=== PATIENT | male | born 2005 | race Caucasian/White ===

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

== ENCOUNTER 2025-06-22 13:42 | Emergency (ER) | payer OTHER, SELFPAY ==
[2025-06-22 14:36] VITALS: BP 112/63; PULSE 65; RESP 18; TEMP 37; O2SAT 97; BMI 20.6
--- NOTE | 2025-06-22 14:55 | PC.NURSE ---
called [facility] and verified dog is vaccinated for rabies [phone]
--- NOTE | 2025-06-22 14:56 | ED.GENADULT ---
HPI - General Adult General Chief complaint: Animal Bite Stated complaint: dog bite today Time Seen by Provider: 06/22/25 14:54 Source: patient, family (father) and RN notes reviewed Mode of arrival: ambulatory Limitations: no limitations History of Present Illness ED Provider: Ham HPI narrative: 19-year-old male presents for evaluation of a dog bite to his left lower leg The [facility] Another individual had a great [place] Pit Bull terrier that bit the patient in the back of the leg The patient has 1 small puncture wound in an abrasion to the back of the left lower calf. He has no difficulty flexing or extending the foot. No active bleeding The patient is up-to-date on his tetanus vaccine Related Data Previous Rx's ?Medication ?Instructions ?Recorded amoxicillin 875 mg-potassium 1 tab PO Q12H #10 tabs 06/22/25 clavulanate 125 mg tablet Allergies Allergy/AdvReac Type Severity Reaction Status Date / Time No Known Allergies Allergy Verified 06/22/25 14:39 Review of Systems Integumentary/Breasts: Skin/Breast: Reports wounds PMFSH Social History Social History Advance Directives: No Advance Directives Information Provided: Yes Physical Exam ED Vital Signs: Vital Signs - 24 hr 06/22/25 14:36 06/22/25 15:28 Temperature 98.6 F 98.6 F Pulse Rate 65 65 Respiratory Rate 18 18 Blood Pressure 112/63 112/63 Pulse Oximetry 97 97 Oxygen Delivery Method Room Air Room Air BMI result Body Mass Index 20.6 Const General: healthy appearing, comfortable, no acute distress, alert and awake Nutritional Appearance: well nourished Orientation/consciousness: patient oriented x3 HENMT Head: Yes normocephalic and Yes atraumatic Eyes Eyelids: Yes eyelids normal Conjunctivae: conjunctivae normal Sclerae: sclerae normal Corneas: corneas normal Pupils: Equal, round and reactive pupils present EOM: EOMs intact bilaterally Neck Neck: Yes full ROM Resp Effort & Inspection: normal respiratory effort, able to speak in complete sentences and not labored Skin Other: There is a small puncture wound to the left lower leg at the calf and an abrasion lateral to this. No active bleeding General skin exam: elasticity normal Neuro General: patient oriented x3 Cranial nerves: Yes Equal, round and reactive pupils present and Yes Bilaterally intact EOM present Cognition (Neuro): normal cognition Extrem Other: Moving all extremities well without any obvious deformities. Full range of motion with flexion-extension of the left lower leg and dorsiflexion, plantar flexion of foot. Medical Decision Making Medical Decision Making [facility] Narrative: 19-year-old male presents for evaluation of a dog bite. The wounds are superficial and quite minor. He is up-to-date in his tetanus. There was no evidence of deep injury or tendon injury. I did cleaned the wound with Betadine. We are able to confirm with [facility] that the dog in question that bit the patient was vaccinated for rabies. He was given if 3 year vaccine in March of 2023. We will give the patient is short course of Augmentin for prophylaxis Differential Diagnosis Differential Diagnoses: The differential diagnosis associated with the presentation includes Dog bite Puncture wound Laceration Skin tear Discharge Plan Discharge Clinical Impression: Dog bite Patient Disposition: Home, Self-Care Instructions: Animal Bite (ED) Additional Instructions: We are able to confirmed with [facility] that the dog was vaccinated for rabies until March of 2026. I recommend taking Augmentin twice daily for the next 5 days to prevent infection Follow-up with your primary doctor, return for new or worsening symptoms Prescriptions: New amoxicillin-pot clavulanate 875-125 mg tablet 1 tab PO Q12H Qty: 10 0RF Interventions: ED Discharge Assessment Last Done: 06/22/25 15:28 Discharge Date/Time: 06/22/25 15:29 Print Language: Yi
[2025-06-22 15:28] VITALS: BP 112/63; PULSE 65; RESP 18; TEMP 37; O2SAT 97
--- OUTSIDE RECORDS SUMMARY | 2025-06-22 15:57 | XMS_ITS | Clinical Summary ---
Author Organization [address] [address] Phone Care Team Providers Care Retail Shift Supervisor Name Role Phone Stephen Long MD Primary Care Provider [phone] Allergies No known active allergies Medications cetirizine (ZYRTEC) 10 mg tablet Take 10 mg by mouth. Active multivitamin capsule Take 1 capsule by mouth. Active Active Problems No known active problems Family History Medical History Relation Name Comments Diabetes Father Cataracts Maternal Grandfather Diabetes Maternal Grandfather Cataracts Maternal Grandmother Thyroid disease Paternal Grandfather Relation Name Status Comments Father Maternal Grandfather Maternal Grandmother Paternal Grandfather Social History Tobacco Use Types Packs/Day Years Used Date Smoking Tobacco: Never Smokeless Tobacco: Never Alcohol Use Standard Drinks/Week Comments Never 0 (1 standard drink = 0.6 oz pur e alcohol) AUDIT-C Answer Date Recorded Q1: How often do you have a drink containing alc ohol? Never 03/20/2021 Average Number of Drinks Not on file 021 Frequency of Binge Drinking Not on file 03/03 Sex and Gender Information Value Date Recorded Sex Assigned at Not on file Legal Sex Male 9:58 AM EDT Gender Identity Not on file Sexual Orientation Not on file Last Filed Vital Signs Vital Sign Reading Time Taken Comments Blood Pressure 104/56 03/20/2021 9:21 AM EDT Pulse 75 03/20/2021 9:21 AM EDT Temperature - - Respiratory Rate - - Oxygen Saturation - - Inhaled Oxygen Concentration - - Weight 72.6 kg (160 lb) 03/20/2021 9:21 AM EDT Height 182.9 cm (6') 03/20/2021 9:21 AM EDT Body Mass Index 21.7 03/20/2021 9:21 AM EDT Body Mass Index Percentile 68.59% 03/20/2021 9:2 1 AM EDT Growth Chart: [facility] (Boys, 2-2 0 Years) Plan of Treatment Health Maintenance Due Date Last Done Comments MMR Vaccines (1 of 1 - Stand ariane series) 2006 DTaP/TDaP Vaccines (1 - Tdap) 2012 HIV screening 2018 Varicella Vaccines (1 of 2 - 13+ 2-dose series) 2018 HPV vaccine series (1 - Male 3-dose series) 2020 Hepatitis C screening 2023 Covid-19 vaccine series (1 - 2023-25 season) 2024 Hepatitis B vaccine series ( 1 of 3 - 19+ 3-dose series) 2024 Influenza Vaccine Pediatric (#1) 2025 RSV Immunization (1 - 1-dose 75+ series) 2080 HIB Vaccines Aged Out No longer eligi ble based on patient's age to complete this topic Hepatitis A Vaccines Aged Out No long er eligible based on patient's age to complete this topic IPV Vaccines Aged Out No longer eligi ble based on patient's age to complete this topic Meningococcal Vaccine Aged Out No vaishnavi florencia eligible based on patient's age to complete this topic Pneumococcal Vaccine (2 - 49 years) Aged Out No longer eligible based on patient's age to complete this topic Rotavirus Vaccines Aged Out No longer eligible based on patient's age to complete this topic Insurance [employer] on file [id number] [place] [place] [address] on file [id number] MEDICAID [facility] on file [id number] MEDICAID Care Teams Retail Shift Supervisor Relationship Specialty Start Date End Date Stephen Long MD [address] [place] [address] PCP - General Pediatrics 03/20/21
--- OUTSIDE RECORDS SUMMARY | 2025-06-22 15:57 | XMS_ITS ---
[facility] Name [facility] Organization Unknown Care Team Organization Name Specialty Phone Email Start Date End [facility]
--- OUTSIDE RECORDS SUMMARY | 2025-06-22 15:57 | XMS_ITS | Clinical Summary ---
Author Organization [facility] Address [address] [place] [phone] Phone Care Team Providers Care Visual Design Lead Name Role Phone Unknown, Unknown Primary Care Provider Unavai lable Allergies No known active allergies Medications cetirizine (ZYRTEC) 10 MG tablet Take 10 mg by mouth as needed for allergies. Active multivitamins capsule Take 1 capsule by mouth daily. Active cyproheptadine (PERIACTIN) 4 mg tablet cyproheptadine 4 mg tablet PLEASE SEE ATTACHED FOR DETAILED DIRECTIONS 2 Active Active Problems No known active problems Family History Medical History Relation Comments Keratoconus Brother Relation Status Comments Brother Social History Tobacco Use Types Packs/Day Years Used Date Smoking Tobacco: Never Smokeless Tobacco: Never Alcohol Use Standard Drinks/Week Comments Never 0 (1 standard drink = 0.6 oz pur e alcohol) Education Answer Date Recorded Are you interested in more education? Not on jude e 02/28/2023 Are you concerned about learning? Not on file 02/28/2023 No 02/28/2023 No 02/28/2023 Digital Access Answer Date Recorded No 03/29/2023 No 03/29/2023 No 03/29/2023 Reliable internet access at home? Not on file 03/29/2023 Device with a working camera? Not on file Sex and Gender Information Value Date Recorded Sex Assigned at Not on file Legal Sex Male 10:54 AM EDT Gender Identity Not on file Sexual Orientation Not on file Last Filed Vital Signs Vital Sign Reading Time Taken Comments Blood Pressure 112/73 10/03/2020 4:15 PM EST Pulse 62 10/03/2020 4:15 PM EST Temperature - - Respiratory Rate 12 10/03/2020 4:15 PM EST Oxygen Saturation - - Inhaled Oxygen Concentration - - Weight 70.3 kg (155 lb) 08/14/2024 1:54 PM EDT Height 191.8 cm (6' 3.5 ) 08/14/2024 1:54 PM EDT Body Mass Index 19.12 08/14/2024 1:54 PM EDT Body Mass Index Percentile 7.85% 08/14/2024 1:5 4 PM EDT Growth Chart: CDC (Boys, 2-2 0 Years) Plan of Treatment Health Maintenance Due Date Last Done Comments DEVELOPMENTAL/BEHAVIORAL SCREENING (PHQ, PSC, or SWYC) 2008 DEPRESSION SCREENING 2017 SMOKING Hx and SMOKELESS TOBACCO SCREENING 2018 MENINGOCOCCAL VACCINES (B) (1 of 2 - Standard) 2021 ADOLESCENT UNIVERSAL LIPID SCREENING 2022 HEPATITIS C SCREENING 2023 HIV ONE-TIME SCREENING (18-65 YEARS) 2023 COVID-19 VACCINE ( season) 2024 04/08/2021, 03/18/2021 BMI ASSESSMENT 08/14/2025 08/14/2024 COMBINED DTaP,Tdap,Td (7 - Td or Tdap) 09/23/2026 09/23/2016, 09/25/2010, 02/24/2007, Additional history exists PNEUMOCOCCAL VACCINES (0-49 years) Aged Out 09/02/2006, 02/21/2006, 2005, Additional history exists No longer eligible based on patient's age to complete this topic HIB VACCINES Completed 12/25/2006, 02/02, 2005, Additional history exists HEPATITIS B VACCINES Completed 08/16/2008, 02/21/2006, 2005, Additional history exists MMR VACCINES Completed 09/25/2010, 12/25/2006 HEPATITIS A VACCINES Completed 09/21/2015, 12/25/19 07 MENINGOCOCCAL VACCINES (ACWY) Aged Out 09/23/2016 No longer eligible based on patient's age to complete this topic VARICELLA VACCINES Completed 09/25/2016, 1 , 06/16/2006 HPV VACCINES Completed 04/09/2019, 09/05/2018 Medical Devices Not on file Insurance [employer] [facility] Image Engine [employer] CHOICE [facility] Patient [employer] [facility] CHOICE [facility] [place] [facility] [place] [facility] [place] [employer] [place] [place] [employer] [facility] Image [employer] [facility] [place] [employer] [facility] [employer] [place] [employer] [facility] [place] [address] COMMUNITY CHO[facility] [place] [address] [address] [place] [facility] [address] [place] [address] [facility] CHOICE [facility] [place] [address] COMMUNITY [facility] [place] Care Teams Visual Design Lead Relationship Specialty Start Date End Date Unknown, Unknown, PCP - General 08/21/24 Additional Source Comments The information contained in this document represents components of the legal health record. It is not the complete legal health record.[facility]
== END 2025-06-22 15:29 | disposition home or self-care (01) ==
PROVIDERS: Emergency Provider Emergency Medicine; PCP Pediatrics Adolescent Medicine
DX: S81.852A Open bite, left lower leg, initial encounter (principal); W54.0XXA Bitten by dog, initial encounter; Y93.9 Activity, unspecified; Y92.9 Unspecified place or not applicable; Y99.8 Other external cause status
CPT/HCPCS: 99282; 99283